=== PATIENT | male | born 1935 ===

== ENCOUNTER 2017-02-06 12:55 | Day surgery (SDC) | payer MEDICARE, OTHER ==
[2017-02-06] MEDS ORDERED: Iodixanol 320 MG/ML 100 ML BOTTLE IV ONE (15:04)
[2017-02-06] MEDS ORDERED: Iodixanol 320 MG/ML 200 ML BOTTLE IV ONE (15:04)
[2017-02-06] MEDS ORDERED: Midazolam 2 MG/2 ML VIAL ONE (15:23)
--- NOTE | 2017-02-06 17:22 | CP.SDSHP ---
Same Day Surgery H & P - History Proposed Procedure: pls see dictated consult from [facility] - Allergies Allergies: Allergies shrimp Allergy (Verified 07/30/16 19:29) RASH Seafood Allergy (Uncoded 02/21/16 13:24) SWELLING Short Stay Discharge - Short Stay Discharge Admitting Diagnosis/Reason for Visit: PVD Disposition: HOME/ ROUTINE
[2017-02-06] MEDS ORDERED: Sodium Chloride 0.45% 1,000 ML IV SCH (17:30)
[2017-02-06] MEDS ORDERED: Sodium Chloride 0.9% 1,000 ML IV ONE (18:08)
[2017-02-06 18:51] VITALS: O2SAT 97
[2017-02-06 19:48] VITALS: BP 124/56; PULSE 77; RESP 14; TEMP 98.5
--- NOTE | 2017-02-08 14:25 | OP ---
PROCEDURE DATE: 02/06/2017 PREOPERATIVE DIAGNOSES: Peripheral vascular disease with ulceration of the right foot and the fifth digit of the right foot. POSTOPERATIVE DIAGNOSIS: Severe tibioperoneal disease. PROCEDURE PERFORMED: Retrograde access left common femoral artery, selective catheter placement in t he right anterior tibial artery via contralateral approach, abdominal aortography with bilateral ilio femoral runoff, bilateral lower extremity angiography, angioplasty right anterior tibial artery. SURGEON: Annika Robles MD EARTH SCIENCE TECHNICIAN: ISAÍAS Graham REFERRING PHYSICIAN: Dr. Lake. ANESTHESIA: Conscious sedation with Versed. COMPLICATIONS: None. HISTORY: The patient is an 81-year-old male with a past medical history of peripheral vascular disea se, status post left below-knee amputation who has gangrenous fifth digit of the right foot Cellulit is was noted of the right lower extremity. The patient had abnormal CT angiogram. He is referred fo r peripheral angiography. DESCRIPTION OF PROCEDURE: After obtaining informed consent, the patient was prepped and draped in th e usual sterile fashion. The left groin was anesthetized with 2% lidocaine solution. A 5-Armenian she ath was inserted into the left common femoral artery via modified Seldinger technique. An Omniflush catheter was advanced in the infrarenal abdominal aorta. Abdominal aortography was performed. Bhakti ter was positioned at the iliac bifurcation. Bilateral iliofemoral runoff was performed. Selective catheter placement with selective angiography and intervention were described separately below. FINDINGS: The infrarenal abdominal aorta is free of aneurysm or dissection. There is no significant common or external iliac disease. Bilateral internal iliac arteries exhibit diffuse disease. No si gnificant inflow stenoses noted. There is a left below-knee amputation. In the right leg, the dista l right superficial femoral artery has a 40% stenosis. Eccentric calcification is noted of the popli teal artery without significant disease. The anterior tibial artery is occluded 100% proximally. Th ere is a collateral network with reconstitution at the ankle. The peroneal artery has a modera te stenosis proximally with brisk antegrade flow. The posterior tibial artery is occluded 100% proxi geoffrey. Distal flow reconstitution is via collaterals. INTERVENTION: The sheath was exchanged for a 6 x 55 cm Cook sheath. The catheter was selectively pl aced in the proximal right superficial femoral artery via contralateral approach. The patient was an ticoagulated with heparin to achieve a therapeutic activated clotting time. An [employer] ES mary dewire was loaded into a 0.018 inch TrailBlazer support catheter. 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 T he guidewire was used to navigate through the chronically occluded segment and enter into the distal vessel. The support catheter was advanced to confirm intraluminal passage. A support catheter was r emoved. A 2.0 x 80 mm balloon was loaded onto the Command ES guidewire. Balloon angioplasty was per formed of the 100% occluded segment. Brisk antegrade flow was noted. There was residual 20%-30% suzan noses. Given brisk antegrade flow and revascularization of the foot, it was recommended that the pro cedure be terminated. All catheters and guidewires were removed. The patient tolerated the procedur e well without complication. An Angio-Seal device was deployed successfully to achieve hemostasis. CONCLUSION: 1. 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 2. Successful cross of the chronic total occlusion with angioplasty and full gnosticism of antegrad e flow via the right anterior tibial artery. PLAN: The patient will continue with antiplatelet therapy. The patient will be transported back to [place] for further management. Annika Robles MD cc: [id number] TT: 02/08/2017 14:24:48 asif
== END 2017-02-06 19:35 | disposition short-term general hospital (02) ==
LOC: C.CATHLAB 12:55 → EDBD 12:55 → C.CATHLAB 19:35
PROVIDERS: ATTEND Internal Medicine Cardiovascular Disease
DX: I70.261 Atherosclerosis of native arteries of extremities with gangrene, right leg (principal); L97.519 Non-pressure chronic ulcer of other part of right foot with unspecified severity; L03.115 Cellulitis of right lower limb; Z89.512 Acquired absence of left leg below knee
CPT/HCPCS: 36247; 37228; 75625; 75716; 75774; 94770; C1725; C1760; C1766; C1769; C1887; C1894; J1644; J2250; J3010; J7030; J7040; Q9966; Q9967